=== PATIENT | male | born 1970 | race Caucasian/White ===

== ENCOUNTER 2016-11-13 12:44 | Emergency (ER) | payer OTHER ==
[2016-11-13 13:48] LABS: LARGE UNSTAINED CELL # 0.2 K/mm3 (0.0-0.4); MONO # 0.5 K/mm3 (0.0-0.8)
[2016-11-13 13:54] LABS: MEAN CORPUSCULAR VOLUME 89.7 fl (80.0-96.0)
[2016-11-13 13:55] LABS: BASO % 0.7 % (0.0-1.0); EOS % 1.7 % (0.0-3.0); LARGE UNSTAINED CELL % 2.4 % (0.0-4.0); MEAN CORPUSCULAR HEMOGLOBIN 32.1 pg (27.0-33.0); MEAN CORPUSCULAR HGB CONC 35.8 g/dl (32.0-36.5); MONO % 6.5 % (0.0-5.0); NEUTROPHILS # 4.1 K/mm3 (1.8-7.7); NEUTROPHILS % 58.8 % (36.0-66.0); PLATELET COUNT, AUTOMATED 222 k/mm3 (150-450); RED CELL DISTRIBUTION WIDTH 12.4 % (11.5-14.5)
[2016-11-13 13:56] LABS: BASO # 0.1 K/mm3 (0.0-0.2); EOS # 0.1 K/mm3 (0.0-0.50); LYMPH # 2.1 K/mm3 (1.5-4.5)
[2016-11-13 14:09] LABS: ALBUMIN/GLOBULIN RATIO 1.14 (1.00-1.93); ALKALINE PHOSPHATASE 64 U/L (45-117); ALT/SGPT 56 U/L (12-78); AMYLASE 72 U/L (25-115); ANION GAP 7 MEQ/L (8-16); AST/SGOT 33 U/L (15-37); BILIRUBIN,DIRECT 0.2 MG/DL (0.0-0.2); BILIRUBIN,TOTAL 0.6 MG/DL (0.2-1.0); BLOOD UREA NITROGEN 10 MG/DL (7-18); CALCIUM LEVEL 8.6 MG/DL (8.5-10.1); CARBON DIOXIDE LEVEL 29 MEQ/L (21-32); CHLORIDE LEVEL 102 MEQ/L (98-107); CREATININE FOR GFR 1.07 MG/DL (0.70-1.30); GLOMERULAR FILTRATION RATE > 60.0 (>60); GLUCOSE, FASTING 227 MG/DL (70-105); POTASSIUM SERUM 4.3 MEQ/L (3.5-5.1); SODIUM LEVEL 138 MEQ/L (136-145); TOTAL PROTEIN 7.5 GM/DL (6.4-8.2)
[2016-11-13] MEDS ORDERED: metFORMIN (GLUCOPHAGE) 500 MG TAB As Ordered ONE (16:44)
--- NOTE | 2016-11-13 17:41 | REP ---
RIGHT UPPER QUADRANT ULTRASOUND: 11/13/2016. Clinical history: Biliary colic. Comparison: CT abdomen/pelvis today without contrast. Findings: Liver is homogeneous and perhaps slightly hyperechoic which may reflect some fatty infiltration. There is no hepatic mass, intrahepatic biliary dilatation nor adjacent ascites. Gallbladder has a wall thickness of 1.7 mm which is normal. There is no stone, sludge or pericholecystic fluid. There was no sonographic Barahona's sign evident. Common duct is 4.5 mm without a filling defect. Pancreas is limited in evaluation due to bowel gas shadowing. No gross abnormality. The right kidney is 10.6 x 4.1 x 5.7 cm. Anteriorly in the interpolar region is a 3.6 x 3 x 2.8 cm cyst. Impression: 1. Gallbladder without stones, sludge, pericholecystic fluid, wall thickening or tenderness. No sonographic Barahona sign. 2. The liver is without acute finding. 3. No ascites. The common duct, pancreas and kidneys intact except for a cyst interpolar region right kidney. Signed by Raul Kirkpatrick MD 11/14/2016 08:31 A
--- NOTE | 2016-11-13 17:49 | REP ---
CT study of the abdomen and pelvis without and with IV contrast: History: Abdominal pain. No comparison studies. CT findings: Procurement Clerk radiograph shows an unremarkable bowel gas pattern. The lung bases are clear. The liver and the spleen are normal in size and homogeneous in texture. There is evidence of mild diffuse fatty infiltration of the liver. No adrenal lesion is seen on either side. There is a cyst in the upper pole of the left kidney measuring 2.2 cm in greatest diameter. There is a 3.2 cm cyst in the right kidney lower pole. No pancreatic abnormality is observed. The gallbladder is unremarkable. No hydronephrosis or intrarenal calculus is seen. A normal appendix is seen in the right lower quadrant. Small and large intestinal bowel loops are unremarkable. Seminal vesicles and urinary bladder are intact. There are a few dystrophic calcifications in the prostate. Small and large bowel loops are unremarkable. No abdominal wall defect is seen. No bony destructive lesion is appreciated. Impression: 1. Bilateral renal cysts; one on each side, right larger than left. 2. Mild fatty infiltration of the liver. 3. Dystrophic calcifications in the prostate. 4. Otherwise unremarkable. Signed by Bon Morales MD 11/13/2016 07:47 P
--- NOTE | 2016-11-13 18:02 | EDDOCDS ---
Physician Documentation [facility] Name: Armando Stokes Age: 46 yrs Sex: Male : 1970 Arrival Date: 11/13/2016 Time: 12:44 Bed I5 / M5 Private MD: [facility], [facility] Disposition: 11/13/16 17:49 Discharged to Home/Self Care. Impression: Upper abdominal pain, unspecified, Fatty (change of) liver, not elsewhere classified, Congenital multiple renal cysts - Bilteral, Right larger than left, Disorder of prostate, unspecified - Prostate Calcifications on CT Abd/Pelvis. - Condition is Stable. - Discharge Instructions: Abdominal Pain, Adult. - Prescriptions for ZOFRAN ODT 4 mg - dissolve 1 tablet by ORAL route 4 times per day As needed do not chew, do not swallow whole; 10 tablet. - Medication Reconciliation, Local Pharmacy Hours form. - Follow up: [facility]; When: 1 - 2 days; Reason: Recheck today's complaints, Continuance of care. Follow up: Emergency Department; Reason: Worsening of conditions. Follow up: [facility]; When: Call to arrange an appointment; Reason: Further diagnostic work-up, Recheck today's complaints, Continuance of care. - Problem is new. - Symptoms have improved. - Notes: Pt understands to f/u with his surgeon at [facility]. Historical: - Allergies: no known allergies; - Home Meds: 1. metformin 1,000 mg Oral tab 1 tab 2 times per day 2. metoprolol tartrate 50 mg Oral tab 1 tab 2 times per day - PMHx: Diabetes - NIDDM: controlled; Hypertension; GERD; - PSHx: Mariangel Fundoplication; Carpal Tunnel Repair- Right; - Social history: Smoking status: Patient states was never smoker of tobacco. No barriers to communication noted, The patient speaks fluent Thai. - Family history: Not pertinent. - : The pt / caregiver states he / she is not on anticoagulants. Home medication list is obtained from the patient. - Exposure Risk Screening:: None identified. Vital Signs: 11/13 12:46 BP 156 / 80; Pulse 60; Resp 18 S; Temp 97.3(O); Pulse Ox 100% on R/A; Weight 81.65 kg / dd6 180.01 lbs (R); Height 5 ft. 7 in. (170.18 cm) (R); 15:30 BP 131 / 73; Pulse 58; Resp 18; Temp 98.0(TE); Pulse Ox 99% on R/A; Pain 5/10; ar3 17:56 BP 135 / 83; Pulse 58; Resp 16; Temp 97.6(O); Pulse Ox 98% on R/A; Pain 0/10; sew 12:46 Body Mass Index 28.19 (81.65 kg, 170.18 cm) dd6 MDM: 13:18 Undress patient appropriately for examination ordered. jc4 13:20 Amylase Ordered. EDMS 13:20 Basic Metabolic Profile Ordered. EDMS 13:20 CBC with Diff Ordered. EDMS 13:20 Lipase Ordered. EDMS 13:20 Liver Profile Ordered. EDMS 13:20 NOTHING BY MOUTH+DIET ordered. EDMS 15:53 [facility] [place] was scanned into [employer] and attached to record. lg 16:20 Basic Metabolic Profile Reviewed. ef1 16:20 CBC with Diff Reviewed. ef1 16:20 Amylase Reviewed. ef1 16:20 Lipase Reviewed. ef1 16:20 Liver Profile Reviewed. ef1 16:22 CT ABD & PELVIS: No Contrast Ordered. EDMS 16:24 Financial registration complete. gjb 16:27 Gallbladder US Ordered. EDMS 16:34 metFORMIN 1000 mg PO once ordered. ef1 Administered Medications: 16:33 CANCELLED (Other Intervention Used): Insulin Regular Human (0.1 units/kg) 4 units IVP ef1 once 17:02 Drug: metFORMIN 1000 mg [metformin 500 mg tablet (2 tabs)] Route: PO; yesenia Signatures: Dispatcher [employer] EDMS Chris Rios,RN RN Brayden Taylor, Reg Reg lg Paola Gusman, PA-C PA-C ef1 Chio De La Cruz, RN RN jc4 Taylor Rodriguez RN RN ms18 Katt Page The chart was reviewed and I authenticate all verbal orders and agree with the evaluation and treatment provided.Corrections: (The following items were deleted from the chart) 16:33 16:31 Insulin Regular Human (0.1 units/kg) 4 units IVP once ordered. ef1 ef1 Attachments: 15:53 [facility] [place] lg MTDD
--- NOTE | 2016-11-13 18:02 | EDDOCDS ---
Nurse's Notes [facility] Name: Armando Stokes Age: 46 yrs Sex: Male : 1970 Arrival Date: 11/13/2016 Time: 12:44 Bed I5 / M5 Private MD: [facility] Diagnosis: Upper abdominal pain, unspecified;Fatty (change of) liver, not elsewhere classified;Congenital multiple renal cysts-Bilteral, Right larger than left;Disorder of prostate, unspecified-Prostate Calcifications on CT Abd/Pelvis Presentation: 11/13 12:57 Presenting complaint: Patient states: that he had a osmar surgery approx 1 year ago ms18 and is now c/o abd pain. Pt called [facility]geron and was told to come here and get checked out and get a CT. Adult Sepsis Screening: The patient does not have new or worsening altered mentation. Patient's respiratory rate is less than 22. Systolic blood pressure is greater than 100. Patient has a qSOFA score of 0- Negative Sepsis Screen. Suicide/Homicide risk assessment- the patient denies having any suicidal and/or homicidal ideations and does not present with any other emotional, behavioral or mental health complaints. Status: Patient is not a social services director or dependent. Transition of care: patient was not received from another setting of care. 12:57 Acuity: NATALI Level 3 ms18 12:57 Method Of Arrival: Walkin/Carried/Asstd ms18 Triage Assessment: 13:02 General: Appears in no apparent distress, comfortable, Behavior is appropriate for age, ms18 cooperative. Pain: Location: right upper quadrant Pain currently is 4 out of 10 on a pain scale. HIV screening NA for this visit Offered previously. Neurological: Level of Consciousness is awake, alert, obeys commands, Oriented to person, place, time. Respiratory: Airway is patent Respiratory effort is even, unlabored. GI: Abdomen is non- distended Denies constipation, diarrhea, nausea, vomiting. Derm: Skin is pink, warm & dry. Historical: - Allergies: no known allergies; - Home Meds: 1. metformin 1,000 mg Oral tab 1 tab 2 times per day 2. metoprolol tartrate 50 mg Oral tab 1 tab 2 times per day - PMHx: Diabetes - NIDDM: controlled; Hypertension; GERD; - PSHx: Osmar Fundoplication; Carpal Tunnel Repair- Right; - Social history: Smoking status: Patient states was never smoker of tobacco. No barriers to communication noted, The patient speaks fluent Monegasque. - Family history: Not pertinent. - : The pt / caregiver states he / she is not on anticoagulants. Home medication list is obtained from the patient. - Exposure Risk Screening:: None identified. Screenin:56 Screening information is obtained from the patient. Fall risk: No risks identified. jmk Assistance ADL's: requires no assistance with activities of daily living. Abuse/DV Screen: The patient / caregiver reports he/she is: not in a situation that causes fear, pain or injury. Nutritional screening: No deficits noted. Advance Directives: Currently, there is no health care proxy. There is no active DNR order. There is no living will. There is no Power of Wedding Florist. home support is adequate. Assessment: 16:54 General: Appears in no apparent distress, skin warm and dry color satisfactory. Moist jmk pink oral mucosa. abd soft and non distended with bowel sounds present x 4.. Respiratory: No deficits noted. Airway is patent Respiratory effort is even, unlabored, Respiratory pattern is regular, Breath sounds are clear bilaterally. GI: Abdomen is flat, non- distended Bowel sounds present X 4 quads. Abd is soft and non tender X 4 quads. Vital Signs: 12:46 BP 156 / 80; Pulse 60; Resp 18 S; Temp 97.3(O); Pulse Ox 100% on R/A; Weight 81.65 kg dd6 (R); Height 5 ft. 7 in. (170.18 cm) (R); 15:30 BP 131 / 73; Pulse 58; Resp 18; Temp 98.0(TE); Pulse Ox 99% on R/A; Pain 5/10; ar3 17:56 BP 135 / 83; Pulse 58; Resp 16; Temp 97.6(O); Pulse Ox 98% on R/A; Pain 0/10; sew 12:46 Body Mass Index 28.19 (81.65 kg, 170.18 cm) dd6 Vitals: 12:46 Log In Time: November 13, 2016 at 12:44. dd6 ED Course: 12:46 Patient visited by Tremaine Abernathy PCA. dd6 12:46 [facility] is Private Physician. dd6 12:46 Patient moved to Waiting dd6 12:48 Patient moved to Pre RCE dd6 13:00 Triage Initiated ms18 13:32 Patient moved to PR1 / 25 ms18 13:39 Amylase Sent. bnb 13:39 Basic Metabolic Profile Sent. bnb 13:39 CBC with Diff Sent. bnb 13:40 Patient moved to Pre RCE bnb 13:40 Lipase Sent. bnb 13:40 Liver Profile Sent. bnb 15:31 Patient visited by Tennille Johnson PCA. ar3 15:46 Patient moved to Triage 2 ead 15:53 Patient name changed from Armando\S\T\S\Luna\S\ to Armando\S\Lupillo\S\Luna. EDMS 15:53 [place] [place] was scanned into [employer] and attached to record. lg 16:20 Paola Gusman PA-C is PHCP. ef1 16:20 Leilani Lagunas MD is Attending Physician. ef1 16:20 Patient visited by Paola Gusman PA-C. ef1 16:27 Patient moved to I5 / M5 ar3 16:43 Patient moved to Ultrasound am17 16:56 The patient / caregiver is instructed regarding the plan of care and ED course. jmk 16:57 Patient moved to I5 / M5 jmk 17:00 Patient visited by Paola Gusman PA-C. ef1 17:43 Patient visited by Paola Gusman PA-C. ef1 17:49 [facility] is Referral Physician. ef1 17:54 [facility] is Referral Physician. ef1 17:56 Patient visited by Kiley Momin. sew Administered Medications: 16:33 CANCELLED (Other Intervention Used): Insulin Regular Human (0.1 units/kg) 4 units IVP ef1 once 17:02 Drug: metFORMIN 1000 mg [metformin 500 mg tablet (2 tabs)] Route: PO; jmrobb Order Results: Lab Order: Amylase; SPEC'M 11/13/16 13:39 Test: AMYLASE; Value: 72; Range: 25-115; Units: U/L; Status: F Lab Order: Basic Metabolic Profile; SPEC'M 11/13/16 13:39 Test: GLUCOSE, FASTING; Value: 227; Range: 70-105; Abnormal: Above high normal; Units: MG/DL; Status: F Test: BLOOD UREA NITROGEN; Value: 10; Range: 7-18; Units: MG/DL; Status: F Test: CREATININE FOR GFR; Value: 1.07; Range: 0.70-1.30; Units: MG/DL; Status: F Test: GLOMERULAR FILTRATION RATE; Value: > 60.0; Range: >60; Status: F Test: SODIUM LEVEL; Value: 138; Range: 136-145; Units: MEQ/L; Status: F Test: POTASSIUM SERUM; Value: 4.3; Range: 3.5-5.1; Units: MEQ/L; Status: F Test: CHLORIDE LEVEL; Value: 102; Range: 98-107; Units: MEQ/L; Status: F Test: CARBON DIOXIDE LEVEL; Value: 29; Range: 21-32; Units: MEQ/L; Status: F Test: ANION GAP; Value: 7; Range: 8-16; Abnormal: Below low normal; Units: MEQ/L; Status: F Test: CALCIUM LEVEL; Value: 8.6; Range: 8.5-10.1; Units: MG/DL; Status: F Test Note: ; Units are mL/min/1.73 m2 Chronic Kidney Disease Staging per NKF: Stage I & II GFR >=60 Normal to Mildly Decreased Stage III GFR 30-59 Moderately Decreased Stage IV GFR 15-29 Severely Decreased Stage V GFR <15 Very Little GFR Left ESRD GFR <15 on DELIVERY REP Lab Order: CBC with Diff; SPEC'M 11/13/16 13:39 Test: WHITE BLOOD COUNT; Value: 7.0; Range: 4.0-10.0; Units: K/mm3; Status: F Test: RED BLOOD COUNT; Value: 4.86; Range: 4.30-6.10; Units: M/mm3; Status: F Test: HEMOGLOBIN; Value: 15.6; Range: 14.0-18.0; Units: g/dl; Status: F Test: HEMATOCRIT; Value: 43.6; Range: 42.0-52.0; Units: %; Status: F Test: MEAN CORPUSCULAR VOLUME; Value: 89.7; Range: 80.0-96.0; Units: fl; Status: F Test: MEAN CORPUSCULAR HEMOGLOBIN; Value: 32.1; Range: 27.0-33.0; Units: pg; Status: F Test: MEAN CORPUSCULAR HGB CONC; Value: 35.8; Range: 32.0-36.5; Units: g/dl; Status: F Test: RED CELL DISTRIBUTION WIDTH; Value: 12.4; Range: 11.5-14.5; Units: %; Status: F Test: PLATELET COUNT, AUTOMATED; Value: 222; Range: 150-450; Units: k/mm3; Status: F Test: NEUTROPHILS %; Value: 58.8; Range: 36.0-66.0; Units: %; Status: F Test: LYMPH %; Value: 30.0; Range: 24.0-44.0; Units: %; Status: F Test: MONO %; Value: 6.5; Range: 0.0-5.0; Abnormal: Above high normal; Units: %; Status: F Test: EOS %; Value: 1.7; Range: 0.0-3.0; Units: %; Status: F Test: BASO %; Value: 0.7; Range: 0.0-1.0; Units: %; Status: F Test: LARGE UNSTAINED CELL %; Value: 2.4; Range: 0.0-4.0; Units: %; Status: F Test: NEUTROPHILS #; Value: 4.1; Range: 1.8-7.7; Units: K/mm3; Status: F Test: LYMPH #; Value: 2.1; Range: 1.5-4.5; Units: K/mm3; Status: F Test: MONO #; Value: 0.5; Range: 0.0-0.8; Units: K/mm3; Status: F Test: EOS #; Value: 0.1; Range: 0.0-0.50; Units: K/mm3; Status: F Test: BASO #; Value: 0.1; Range: 0.0-0.2; Units: K/mm3; Status: F Test: LARGE UNSTAINED CELL #; Value: 0.2; Range: 0.0-0.4; Units: K/mm3; Status: F Lab Order: Lipase; SPEC'M 11/13/16 13:39 Test: LIPASE; Value: 265; Range: 73-393; Units: U/L; Status: F Lab Order: Liver Profile; SPEC'M 11/13/16 13:39 Test: AST/SGOT; Value: 33; Range: 15-37; Units: U/L; Status: F Test: ALT/SGPT; Value: 56; Range: 12-78; Units: U/L; Status: F Test: ALKALINE PHOSPHATASE; Value: 64; Range: 45-117; Units: U/L; Status: F Test: BILIRUBIN,TOTAL; Value: 0.6; Range: 0.2-1.0; Units: MG/DL; Status: F Test: BILIRUBIN,DIRECT; Value: 0.2; Range: 0.0-0.2; Units: MG/DL; Status: F Test: TOTAL PROTEIN; Value: 7.5; Range: 6.4-8.2; Units: GM/DL; Status: F Test: ALBUMIN; Value: 4.0; Range: 3.2-5.2; Units: GM/DL; Status: F Test: ALBUMIN/GLOBULIN RATIO; Value: 1.14; Range: 1.00-1.93; Status: F Outcome: 17:49 Discharge ordered by Provider. ef1 18:00 Discharge Assessment: Patient awake, alert and oriented x 3. No cognitive and/or jmk functional deficits noted. Patient verbalized understanding of disposition instructions. patient administered narcotics - no. The following High Risk Discharge criteria are identified: None. Discharged to home ambulatory. Condition: good. Discharge instructions given to patient, Instructed on discharge instructions, follow up and referral plans. Demonstrated understanding of instructions, medications, Pt was receptive of discharge instructions/ teaching. Prescriptions given X 1. CT Study completed. Property :Personal belongings accompany Pt. 18:01 Patient left the ED. yesenia Signatures: Dispatcher [employer] EDMS Chris Rios,RN RN Brayden Taylor, Reg Reg lg Tremaine Abernathy, ANESTHESIOLOGIST ASSISTANT ANESTHESIOLOGIST ASSISTANT dd6 Paola Gusman, PA-C PA-C ef1 Tennille Johnson, ANESTHESIOLOGIST ASSISTANT ANESTHESIOLOGIST ASSISTANT ar3 Kiley Momin Emily,GUSTAVO CHEN eaAmparo Stanley am17 Taylor Rodriguez RN RN ms18 Elina García, ANESTHESIOLOGIST ASSISTANT ANESTHESIOLOGIST ASSISTANT bnb MTDD
--- NOTE | 2016-11-15 19:02 | EDDOCDS ---
Physician Documentation [facility] Name: Armando Stokes Age: 46 yrs Sex: Male : 1970 Arrival Date: 11/13/2016 Time: 12:44 Bed I5 / M5 Private MD: [facility] Disposition: 11/13/16 17:49 Discharged to Home/Self Care. Impression: Upper abdominal pain, unspecified, Fatty (change of) liver, not elsewhere classified, Congenital multiple renal cysts - Bilteral, Right larger than left, Disorder of prostate, unspecified - Prostate Calcifications on CT Abd/Pelvis. - Condition is Stable. - Discharge Instructions: Abdominal Pain, Adult. - Prescriptions for ZOFRAN ODT 4 mg - dissolve 1 tablet by ORAL route 4 times per day As needed do not chew, do not swallow whole; 10 tablet. - Medication Reconciliation, Local Pharmacy Hours form. - Follow up: [facility]; When: 1 - 2 days; Reason: Recheck today's complaints, Continuance of care. Follow up: Emergency Department; Reason: Worsening of conditions. Follow up: [facility]; When: Call to arrange an appointment; Reason: Further diagnostic work-up, Recheck today's complaints, Continuance of care. - Problem is new. - Symptoms have improved. - Notes: Pt understands to f/u with his surgeon at [facility]. Historical: - Allergies: no known allergies; - Home Meds: 1. metformin 1,000 mg Oral tab 1 tab 2 times per day 2. metoprolol tartrate 50 mg Oral tab 1 tab 2 times per day - PMHx: Diabetes - NIDDM: controlled; Hypertension; GERD; - PSHx: Mariangel Fundoplication; Carpal Tunnel Repair- Right; - Social history: Smoking status: Patient states was never smoker of tobacco. No barriers to communication noted, The patient speaks fluent Upper Sorbian. - Family history: Not pertinent. - : The pt / caregiver states he / she is not on anticoagulants. Home medication list is obtained from the patient. - Exposure Risk Screening:: None identified. Vital Signs: 11/13 12:46 BP 156 / 80; Pulse 60; Resp 18 S; Temp 97.3(O); Pulse Ox 100% on R/A; Weight 81.65 kg / dd6 180.01 lbs (R); Height 5 ft. 7 in. (170.18 cm) (R); 15:30 BP 131 / 73; Pulse 58; Resp 18; Temp 98.0(TE); Pulse Ox 99% on R/A; Pain 5/10; ar3 17:56 BP 135 / 83; Pulse 58; Resp 16; Temp 97.6(O); Pulse Ox 98% on R/A; Pain 0/10; sew 12:46 Body Mass Index 28.19 (81.65 kg, 170.18 cm) dd6 MDM: 13:18 Undress patient appropriately for examination ordered. jc4 13:20 Amylase Ordered. EDMS 13:20 Basic Metabolic Profile Ordered. EDMS 13:20 CBC with Diff Ordered. EDMS 13:20 Lipase Ordered. EDMS 13:20 Liver Profile Ordered. EDMS 13:20 NOTHING BY MOUTH+DIET ordered. EDMS 15:53 [facility] [place] was scanned into [employer] and attached to record. lg 16:20 Basic Metabolic Profile Reviewed. ef1 16:20 CBC with Diff Reviewed. ef1 16:20 Amylase Reviewed. ef1 16:20 Lipase Reviewed. ef1 16:20 Liver Profile Reviewed. ef1 16:22 CT ABD & PELVIS: No Contrast Ordered. EDMS 16:24 Financial registration complete. gjb 16:27 Gallbladder US Ordered. EDMS 16:34 metFORMIN 1000 mg PO once ordered. ef1 11/14 09:15 T-Sheet-- Draft Copy was scanned into [employer] and attached to record. gb 09:16 Radiology Report was scanned into [employer] and attached to record. gb Administered Medications: 11/13 16:33 CANCELLED (Other Intervention Used): Insulin Regular Human (0.1 units/kg) 4 units IVP ef1 once 17:02 Drug: metFORMIN 1000 mg [metformin 500 mg tablet (2 tabs)] Route: PO; yesenia Signatures: Dispatcher [employer] EDMS Chris Rios,RN RN benitezk Silvana Luque, Reg Reg gb Brayden Del Toro, Reg Reg lg Paola Gusman, PA-C PA-C ef1 Chio De La Cruz RN RN jc4 Taylor RodriguezRN RN ms18 Katt Page The chart was reviewed and I authenticate all verbal orders and agree with the evaluation and treatment provided.Corrections: (The following items were deleted from the chart) 16:33 16:31 Insulin Regular Human (0.1 units/kg) 4 units IVP once ordered. ef1 ef1 Attachments: 15:53 [facility] Payment Agreement lg 11/14 09:15 T-Sheet-- Draft Copy gb Chart Complete MTDD
--- NOTE | 2016-11-15 19:02 | EDDOCDS ---
Physician Documentation [facility] Name: Armadno Stokes Age: 46 yrs Sex: Male : 1970 Arrival Date: 11/13/2016 Time: 12:44 Bed I5 / M5 Private MD: [facility], [facility] Disposition: 11/13/16 17:49 Discharged to Home/Self Care. Impression: Upper abdominal pain, unspecified, Fatty (change of) liver, not elsewhere classified, Congenital multiple renal cysts - Bilteral, Right larger than left, Disorder of prostate, unspecified - Prostate Calcifications on CT Abd/Pelvis. - Condition is Stable. - Discharge Instructions: Abdominal Pain, Adult. - Prescriptions for ZOFRAN ODT 4 mg - dissolve 1 tablet by ORAL route 4 times per day As needed do not chew, do not swallow whole; 10 tablet. - Medication Reconciliation, Local Pharmacy Hours form. - Follow up: [facility] [place]; When: 1 - 2 days; Reason: Recheck today's complaints, Continuance of care. Follow up: Emergency Department; Reason: Worsening of conditions. Follow up: [facility]; When: Call to arrange an appointment; Reason: Further diagnostic work-up, Recheck today's complaints, Continuance of care. - Problem is new. - Symptoms have improved. - Notes: Pt understands to f/u with his surgeon at [facility]. Historical: - Allergies: no known allergies; - Home Meds: 1. metformin 1,000 mg Oral tab 1 tab 2 times per day 2. metoprolol tartrate 50 mg Oral tab 1 tab 2 times per day - PMHx: Diabetes - NIDDM: controlled; Hypertension; GERD; - PSHx: Mariangel Fundoplication; Carpal Tunnel Repair- Right; - Social history: Smoking status: Patient states was never smoker of tobacco. No barriers to communication noted, The patient speaks fluent Macedonian. - Family history: Not pertinent. - : The pt / caregiver states he / she is not on anticoagulants. Home medication list is obtained from the patient. - Exposure Risk Screening:: None identified. Vital Signs: 11/13 12:46 BP 156 / 80; Pulse 60; Resp 18 S; Temp 97.3(O); Pulse Ox 100% on R/A; Weight 81.65 kg / dd6 180.01 lbs (R); Height 5 ft. 7 in. (170.18 cm) (R); 15:30 BP 131 / 73; Pulse 58; Resp 18; Temp 98.0(TE); Pulse Ox 99% on R/A; Pain 5/10; ar3 17:56 BP 135 / 83; Pulse 58; Resp 16; Temp 97.6(O); Pulse Ox 98% on R/A; Pain 0/10; sew 12:46 Body Mass Index 28.19 (81.65 kg, 170.18 cm) dd6 MDM: 13:18 Undress patient appropriately for examination ordered. jc4 13:20 Amylase Ordered. EDMS 13:20 Basic Metabolic Profile Ordered. EDMS 13:20 CBC with Diff Ordered. EDMS 13:20 Lipase Ordered. EDMS 13:20 Liver Profile Ordered. EDMS 13:20 NOTHING BY MOUTH+DIET ordered. EDMS 15:53 [facility] [place] Payment Agreement was scanned into [employer] and attached to record. lg 16:20 Basic Metabolic Profile Reviewed. ef1 16:20 CBC with Diff Reviewed. ef1 16:20 Amylase Reviewed. ef1 16:20 Lipase Reviewed. ef1 16:20 Liver Profile Reviewed. ef1 16:22 CT ABD & PELVIS: No Contrast Ordered. EDMS 16:24 Financial registration complete. gjb 16:27 Gallbladder US Ordered. EDMS 16:34 metFORMIN 1000 mg PO once ordered. ef1 11/14 09:15 T-Sheet-- Draft Copy was scanned into [employer] and attached to record. gb 09:16 Radiology Report was scanned into [employer] and attached to record. gb Administered Medications: 11/13 16:33 CANCELLED (Other Intervention Used): Insulin Regular Human (0.1 units/kg) 4 units IVP ef1 once 17:02 Drug: metFORMIN 1000 mg [metformin 500 mg tablet (2 tabs)] Route: PO; yesenia Signatures: Dispatcher [employer] EDMS Chris Rios,RN RN benitezk Silvana Luque, Reg Reg gb Brayden Del Toro, Reg Reg lg Paola Gusman, PA-C PA-C ef1 Chio De La Cruz RN RN jc4 Taylor RodriguezRN RN ms18 Katt Page The chart was reviewed and I authenticate all verbal orders and agree with the evaluation and treatment provided.Corrections: (The following items were deleted from the chart) 16:33 16:31 Insulin Regular Human (0.1 units/kg) 4 units IVP once ordered. ef1 ef1 Attachments: 15:53 [facility] Payment Agreement lg 11/14 09:15 T-Sheet-- Draft Copy gb Chart Complete MTDD
--- NOTE | 2016-11-15 19:02 | EDDOCDS ---
Nurse's Notes [facility] Name: Armando Stokes Age: 46 yrs Sex: Male : 1970 Arrival Date: 11/13/2016 Time: 12:44 Bed I5 / M5 Private MD: [facility] Diagnosis: Upper abdominal pain, unspecified;Fatty (change of) liver, not elsewhere classified;Congenital multiple renal cysts-Bilteral, Right larger than left;Disorder of prostate, unspecified-Prostate Calcifications on CT Abd/Pelvis Presentation: 11/13 12:57 Presenting complaint: Patient states: that he had a osmar surgery approx 1 year ago ms18 and is now c/o abd pain. Pt called [facility] and was told to come here and get checked out and get a CT. Adult Sepsis Screening: The patient does not have new or worsening altered mentation. Patient's respiratory rate is less than 22. Systolic blood pressure is greater than 100. Patient has a qSOFA score of 0- Negative Sepsis Screen. Suicide/Homicide risk assessment- the patient denies having any suicidal and/or homicidal ideations and does not present with any other emotional, behavioral or mental health complaints. Status: Patient is not a food service employee or dependent. Transition of care: patient was not received from another setting of care. 12:57 Acuity: NATALI Level 3 ms18 12:57 Method Of Arrival: Walkin/Carried/Asstd ms18 Triage Assessment: 13:02 General: Appears in no apparent distress, comfortable, Behavior is appropriate for age, ms18 cooperative. Pain: Location: right upper quadrant Pain currently is 4 out of 10 on a pain scale. HIV screening NA for this visit Offered previously. Neurological: Level of Consciousness is awake, alert, obeys commands, Oriented to person, place, time. Respiratory: Airway is patent Respiratory effort is even, unlabored. GI: Abdomen is non- distended Denies constipation, diarrhea, nausea, vomiting. Derm: Skin is pink, warm & dry. Historical: - Allergies: no known allergies; - Home Meds: 1. metformin 1,000 mg Oral tab 1 tab 2 times per day 2. metoprolol tartrate 50 mg Oral tab 1 tab 2 times per day - PMHx: Diabetes - NIDDM: controlled; Hypertension; GERD; - PSHx: Osmar Fundoplication; Carpal Tunnel Repair- Right; - Social history: Smoking status: Patient states was never smoker of tobacco. No barriers to communication noted, The patient speaks fluent Norwegian. - Family history: Not pertinent. - : The pt / caregiver states he / she is not on anticoagulants. Home medication list is obtained from the patient. - Exposure Risk Screening:: None identified. Screenin:56 Screening information is obtained from the patient. Fall risk: No risks identified. jmk Assistance ADL's: requires no assistance with activities of daily living. Abuse/DV Screen: The patient / caregiver reports he/she is: not in a situation that causes fear, pain or injury. Nutritional screening: No deficits noted. Advance Directives: Currently, there is no health care proxy. There is no active DNR order. There is no living will. There is no Power of Firearms Inspector. home support is adequate. Assessment: 16:54 General: Appears in no apparent distress, skin warm and dry color satisfactory. Moist jmk pink oral mucosa. abd soft and non distended with bowel sounds present x 4.. Respiratory: No deficits noted. Airway is patent Respiratory effort is even, unlabored, Respiratory pattern is regular, Breath sounds are clear bilaterally. GI: Abdomen is flat, non- distended Bowel sounds present X 4 quads. Abd is soft and non tender X 4 quads. Vital Signs: 12:46 BP 156 / 80; Pulse 60; Resp 18 S; Temp 97.3(O); Pulse Ox 100% on R/A; Weight 81.65 kg dd6 (R); Height 5 ft. 7 in. (170.18 cm) (R); 15:30 BP 131 / 73; Pulse 58; Resp 18; Temp 98.0(TE); Pulse Ox 99% on R/A; Pain 5/10; ar3 17:56 BP 135 / 83; Pulse 58; Resp 16; Temp 97.6(O); Pulse Ox 98% on R/A; Pain 0/10; sew 12:46 Body Mass Index 28.19 (81.65 kg, 170.18 cm) dd6 Vitals: 12:46 Log In Time: November 13, 2016 at 12:44. dd6 ED Course: 12:46 Patient visited by Tremaine Abernathy PCA. dd6 12:46 [facility] is Private Physician. dd6 12:46 Patient moved to Waiting dd6 12:48 Patient moved to Pre RCE dd6 13:00 Triage Initiated ms18 13:32 Patient moved to PR1 / 25 ms18 13:39 Amylase Sent. bnb 13:39 Basic Metabolic Profile Sent. bnb 13:39 CBC with Diff Sent. bnb 13:40 Patient moved to Pre RCE bnb 13:40 Lipase Sent. bnb 13:40 Liver Profile Sent. bnb 15:31 Patient visited by Tennille Johnson PCA. ar3 15:46 Patient moved to Triage 2 ead 15:53 Patient name changed from Armando\S\T\S\Grady\S\ to Armando\S\Lupillo\S\Grady. EDMS 15:53 [facility] [place] Payment Agreement was scanned into [employer] and attached to record. lg 16:20 Paola uGsman PA-C is PHCP. ef1 16:20 Leilani Lagunas MD is Attending Physician. ef1 16:20 Patient visited by Paola Gusman PA-C. ef1 16:27 Patient moved to I5 / M5 ar3 16:43 Patient moved to Ultrasound am17 16:56 The patient / caregiver is instructed regarding the plan of care and ED course. jmk 16:57 Patient moved to I5 / M5 jmk 17:00 Patient visited by Paola Gusman PA-C. ef1 17:43 Patient visited by Paola Gusman PA-C. ef1 17:49 [facility] is Referral Physician. ef1 17:54 [facility] is Referral Physician. ef1 17:56 Patient visited by Kiley Momin. sew 18:11 Gallbladder US Returned. EDMS 18:11 CT ABD & PELVIS: No Contrast Returned. EDMS 11/14 09:15 T-Sheet-- Draft Copy was scanned into [employer] and attached to record. gb 09:16 Radiology Report was scanned into [employer] and attached to record. gb Administered Medications: 11/13 16:33 CANCELLED (Other Intervention Used): Insulin Regular Human (0.1 units/kg) 4 units IVP ef1 once 17:02 Drug: metFORMIN 1000 mg [metformin 500 mg tablet (2 tabs)] Route: PO; jmk Order Results: Lab Order: Amylase; SPEC'M 11/13/16 13:39 Test: AMYLASE; Value: 72; Range: 25-115; Units: U/L; Status: F Lab Order: Basic Metabolic Profile; SPEC'M 11/13/16 13:39 Test: GLUCOSE, FASTING; Value: 227; Range: 70-105; Abnormal: Above high normal; Units: MG/DL; Status: F Test: BLOOD UREA NITROGEN; Value: 10; Range: 7-18; Units: MG/DL; Status: F Test: CREATININE FOR GFR; Value: 1.07; Range: 0.70-1.30; Units: MG/DL; Status: F Test: GLOMERULAR FILTRATION RATE; Value: > 60.0; Range: >60; Status: F Test: SODIUM LEVEL; Value: 138; Range: 136-145; Units: MEQ/L; Status: F Test: POTASSIUM SERUM; Value: 4.3; Range: 3.5-5.1; Units: MEQ/L; Status: F Test: CHLORIDE LEVEL; Value: 102; Range: 98-107; Units: MEQ/L; Status: F Test: CARBON DIOXIDE LEVEL; Value: 29; Range: 21-32; Units: MEQ/L; Status: F Test: ANION GAP; Value: 7; Range: 8-16; Abnormal: Below low normal; Units: MEQ/L; Status: F Test: CALCIUM LEVEL; Value: 8.6; Range: 8.5-10.1; Units: MG/DL; Status: F Test Note: ; Units are mL/min/1.73 m2 Chronic Kidney Disease Staging per NKF: Stage I & II GFR >=60 Normal to Mildly Decreased Stage III GFR 30-59 Moderately Decreased Stage IV GFR 15-29 Severely Decreased Stage V GFR <15 Very Little GFR Left ESRD GFR <15 on RIVET PASSER Lab Order: CBC with Diff; SPEC'M 11/13/16 13:39 Test: WHITE BLOOD COUNT; Value: 7.0; Range: 4.0-10.0; Units: K/mm3; Status: F Test: RED BLOOD COUNT; Value: 4.86; Range: 4.30-6.10; Units: M/mm3; Status: F Test: HEMOGLOBIN; Value: 15.6; Range: 14.0-18.0; Units: g/dl; Status: F Test: HEMATOCRIT; Value: 43.6; Range: 42.0-52.0; Units: %; Status: F Test: MEAN CORPUSCULAR VOLUME; Value: 89.7; Range: 80.0-96.0; Units: fl; Status: F Test: MEAN CORPUSCULAR HEMOGLOBIN; Value: 32.1; Range: 27.0-33.0; Units: pg; Status: F Test: MEAN CORPUSCULAR HGB CONC; Value: 35.8; Range: 32.0-36.5; Units: g/dl; Status: F Test: RED CELL DISTRIBUTION WIDTH; Value: 12.4; Range: 11.5-14.5; Units: %; Status: F Test: PLATELET COUNT, AUTOMATED; Value: 222; Range: 150-450; Units: k/mm3; Status: F Test: NEUTROPHILS %; Value: 58.8; Range: 36.0-66.0; Units: %; Status: F Test: LYMPH %; Value: 30.0; Range: 24.0-44.0; Units: %; Status: F Test: MONO %; Value: 6.5; Range: 0.0-5.0; Abnormal: Above high normal; Units: %; Status: F Test: EOS %; Value: 1.7; Range: 0.0-3.0; Units: %; Status: F Test: BASO %; Value: 0.7; Range: 0.0-1.0; Units: %; Status: F Test: LARGE UNSTAINED CELL %; Value: 2.4; Range: 0.0-4.0; Units: %; Status: F Test: NEUTROPHILS #; Value: 4.1; Range: 1.8-7.7; Units: K/mm3; Status: F Test: LYMPH #; Value: 2.1; Range: 1.5-4.5; Units: K/mm3; Status: F Test: MONO #; Value: 0.5; Range: 0.0-0.8; Units: K/mm3; Status: F Test: EOS #; Value: 0.1; Range: 0.0-0.50; Units: K/mm3; Status: F Test: BASO #; Value: 0.1; Range: 0.0-0.2; Units: K/mm3; Status: F Test: LARGE UNSTAINED CELL #; Value: 0.2; Range: 0.0-0.4; Units: K/mm3; Status: F Lab Order: Lipase; SPEC'M 11/13/16 13:39 Test: LIPASE; Value: 265; Range: 73-393; Units: U/L; Status: F Lab Order: Liver Profile; SPEC'M 11/13/16 13:39 Test: AST/SGOT; Value: 33; Range: 15-37; Units: U/L; Status: F Test: ALT/SGPT; Value: 56; Range: 12-78; Units: U/L; Status: F Test: ALKALINE PHOSPHATASE; Value: 64; Range: 45-117; Units: U/L; Status: F Test: BILIRUBIN,TOTAL; Value: 0.6; Range: 0.2-1.0; Units: MG/DL; Status: F Test: BILIRUBIN,DIRECT; Value: 0.2; Range: 0.0-0.2; Units: MG/DL; Status: F Test: TOTAL PROTEIN; Value: 7.5; Range: 6.4-8.2; Units: GM/DL; Status: F Test: ALBUMIN; Value: 4.0; Range: 3.2-5.2; Units: GM/DL; Status: F Test: ALBUMIN/GLOBULIN RATIO; Value: 1.14; Range: 1.00-1.93; Status: F Radiology Order: CT ABD & PELVIS: No Contrast Test: CT ABD & PELVIS: No Contrast REASON FOR EXAMINATION: Abdomen Pain; CT study of the abdomen and pelvis without and with IV contrast:; ; History: Abdominal pain.; ; No comparison studies.; ; CT findings: Molded Grid And Parts Inspector radiograph shows an unremarkable bowel gas pattern. The lung; bases are clear. The liver and the spleen are normal in size and homogeneous in; texture. There is evidence of mild diffuse fatty infiltration of the liver. No; adrenal lesion is seen on either side. There is a cyst in the upper pole of the; left kidney measuring 2.2 cm in greatest diameter. There is a 3.2 cm cyst in the; right kidney lower pole. No pancreatic abnormality is observed. The gallbladder; is unremarkable. No hydronephrosis or intrarenal calculus is seen. A normal; appendix is seen in the right lower quadrant. Small and large intestinal bowel; loops are unremarkable. Seminal vesicles and urinary bladder are intact. There; are a few dystrophic calcifications in the prostate. Small and large bowel loops; are unremarkable. No abdominal wall defect is seen. No bony destructive lesion; is appreciated.; ; Impression:; ; 1. Bilateral renal cysts; one on each side, right larger than left.; ; 2. Mild fatty infiltration of the liver.; ; 3. Dystrophic calcifications in the prostate.; ; 4. Otherwise unremarkable.; ; ; Signed by; Bon Morales MD 11/13/2016 07:47 P; Radiology Order: Gallbladder US Test: Gallbladder US REASON FOR EXAMINATION: Biliary Colic; RIGHT UPPER QUADRANT ULTRASOUND: 11/13/2016.; ; Clinical history: Biliary colic.; ; Comparison: CT abdomen/pelvis today without contrast.; ; Findings: Liver is homogeneous and perhaps slightly hyperechoic which may; reflect some fatty infiltration. There is no hepatic mass, intrahepatic biliary; dilatation nor adjacent ascites. Gallbladder has a wall thickness of 1.7 mm; which is normal. There is no stone, sludge or pericholecystic fluid. There was; no sonographic Barahona's sign evident. Common duct is 4.5 mm without a filling; defect. Pancreas is limited in evaluation due to bowel gas shadowing. No gross; abnormality. The right kidney is 10.6 x 4.1 x 5.7 cm. Anteriorly in the; interpolar region is a 3.6 x 3 x 2.8 cm cyst.; ; Impression:; ; 1. Gallbladder without stones, sludge, pericholecystic fluid, wall thickening or; tenderness. No sonographic Barahona sign.; ; 2. The liver is without acute finding.; ; 3. No ascites. The common duct, pancreas and kidneys intact except for a cyst; interpolar region right kidney.; ; ; Signed by; Raul Kirkpatrick MD 11/14/2016 08:31 A; Outcome: 17:49 Discharge ordered by Provider. ef1 18:00 Discharge Assessment: Patient awake, alert and oriented x 3. No cognitive and/or jmk functional deficits noted. Patient verbalized understanding of disposition instructions. patient administered narcotics - no. The following High Risk Discharge criteria are identified: None. Discharged to home ambulatory. Condition: good. Discharge instructions given to patient, Instructed on discharge instructions, follow up and referral plans. Demonstrated understanding of instructions, medications, Pt was receptive of discharge instructions/ teaching. Prescriptions given X 1. CT Study completed. Property :Personal belongings accompany Pt. 18:01 Patient left the ED. yesenia Signatures: Dispatcher [employer] EDMS Chris Rios,RN RN yesenia Luque, Silvana, Reg Reg gb Alverto TeganLandonsarah, Reg Reg lg Tremaine Abernathy, COMMUNICATIONS PROGRAM MANAGER COMMUNICATIONS PROGRAM MANAGER dd6 Paola Gusman, PA-C PA-C ef1 Tennille Johnson, COMMUNICATIONS PROGRAM MANAGER COMMUNICATIONS PROGRAM MANAGER ar3 Kiley Momin Emily,RN RN eaAmparo Stanley am17 Taylor Rodriguez,RN RN ms18 Elina García, COMMUNICATIONS PROGRAM MANAGER COMMUNICATIONS PROGRAM MANAGER bnb Chart Complete MTDD
== END 2016-11-13 18:01 | disposition home or self-care (01) ==
LOC: M ED 12:44
DX: N28.1 Cyst of kidney, acquired (principal); K76.0 Fatty (change of) liver, not elsewhere classified; N42.9 Disorder of prostate, unspecified; E11.9 Type 2 diabetes mellitus without complications; I10 Essential (primary) hypertension; K21.9 Gastro-esophageal reflux disease without esophagitis; Z79.899 Other long term (current) drug therapy

== ENCOUNTER → 2016-11-20 | Outpatient (CLI) | payer OTHER | LOC: M SMT 15:42 | PROVIDERS: ATTEND Nurse Practitioner Women's Health | DX: Z12.5 Encounter for screening for malignant neoplasm of prostate (principal) ==

== ENCOUNTER → 2016-11-28 | Outpatient (CLI) | payer OTHER ==
[~2016-11-28] MED LIST: E-Z-GAS II EFFERVESCENT PACKET (SODIUM BICARB./CITRIC ACID/SIMETHICONE) As Ordered ONE; E-Z-HD 98% w/w 340GM SUSP BTL As Ordered ONE; E-Z-PAQUE 96% w/w SUSP 176GM BTL As Ordered ONE
--- NOTE | 2016-11-28 19:05 | REP ---
ESOPHAGRAM: The procedure was performed under the direct supervision of Dr. Morales. The images were reviewed with Dr. Morales. A single view PA chest x-ray is submitted as a table saw operator film. The superior mediastinal structures are midline. The heart size is within normal limits. The lungs are clear. Liquid barium was given in the erect and prone oblique positions. The oral and pharyngeal stages of deglutition are unremarkable. Esophageal transport is prompt and efficient and there is no esophagitis, stricture, mucosal ring or hiatal hernia. The patient is status post Mariangel fundoplasty. There is mild gastroesophageal reflux demonstrated to below the level of the davonte. There is free flow of contrast through the surgical site without evidence of stricture or obstruction. IMPRESSION: Postsurgical changes consistent with the patient's history of Mariangel fundoplasty. There is mild reflux demonstrated to below the level of the davonte, otherwise single contrast esophagram within normal limits. 1 minute and 39 seconds of fluoroscopy time was utilized for this procedure. Reviewed by JEEVAN Pritchard 11/29/2016 02:02 PEdited and Signed by Bon Morales MD 11/29/2016 02:25 P
== END ==
LOC: M RAD 07:54
PROVIDERS: ATTEND Surgery
DX: K21.9 Gastro-esophageal reflux disease without esophagitis (principal); Z98.890 Other specified postprocedural states; T17.308A Unspecified foreign body in larynx causing other injury, initial encounter

== ENCOUNTER → 2016-12-08 | Outpatient (CLI) | payer OTHER ==
[~2016-12-08] MED LIST changes: -E-Z-GAS II EFFERVESCENT PACKET (SODIUM BICARB./CITRIC ACID/SIMETHICONE) As Ordered ONE; -E-Z-HD 98% w/w 340GM SUSP BTL As Ordered ONE; -E-Z-PAQUE 96% w/w SUSP 176GM BTL As Ordered ONE; +ISOVUE-370 76% 100ML VIAL (Q9967) As Ordered ONE
--- NOTE | 2016-12-08 21:11 | REP ---
CT ABDOMEN AND PELVIS WITH CONTRAST: 12/08/2016. Clinical history: Renal cyst for dedicated dynamic CT protocol. Comparison: Noncontrast CT and gallbladder ultrasound 11/13/2016. Technique: Noncontrast images through the kidneys with a bolus of 100 mL of Isovue 370 with arterial, venous and 5-minute delayed images through the kidneys and venous phase imaging through the entire abdomen and pelvis. Coronal and sagittal reconstructions provided and venous phase imaging. CT abdomen: The lung bases are clear. Heart is not enlarged. There is no pericardial thickening or effusion. I see no definite hiatal hernia. No fatty liver change or focal hepatic lesion. No hepatosplenomegaly, biliary dilatation, cyst or solid renal mass. Gallbladder partially contracted without calcified stone or mass. Stomach shows small amounts of retained fluid within, but no mass. Adrenal glands were normal. In the upper pole of the right kidney is a 19 mm cyst with smooth margins. It has no calcification on the precontrast images. It maintains homogeneous low attenuation; does not enhance. Anteriorly at the interpolar lower pole junction of the right kidney there is a 3.4 cm cyst partially exophytic. It shows no calcification in its wall. There is no perceptible wall or enhancement of the wall or its internal appearance. There is no evidence of enhancement on the standard delayed images. There are no solid renal masses. I see no septations. The aorta is unremarkable. No periaortic or other retroperitoneal lymphadenopathy. Pancreas, small bowel loops and colon unremarkable. Appendix is seen and normal in caliber without inflammatory changes. There is some barium within it from the esophagram last month. Bones show degenerative facet changes lower lumbar spine without compression deformity or destructive lesion. The visualized ribs are intact. CT pelvis: Hips, pelvis, SI joints, sacrum and symphysis pubis intact without focal lesion. The colon is unremarkable. Small bowel loops in the pelvis show fluid, slight dilatation, but no evidence of obstruction, mass or free air, ascites, adenopathy or perforation. No ventral or inguinal hernia nor pathologic inguinal adenopathy. Bladder unremarkable with no wall thickening, stone or mass. No distal ureteral dilatation or stone. Prostate has a few calcifications within. It measures approximately 4.3 x 4.5 x 4 cm, somewhat lobulated in its indentation at the bladder base and enlarged. No periprostatic adenopathy or infiltration by CT. Seminal vesicles symmetric. The distal left colon, sigmoid and rectum unremarkable. Impression: 1. Bosniak class I renal cyst. These are simple cysts on each side and are clearly benign needing no further follow-up. 2. Prostate enlargement as described. 3. Some mildly dilated distal small bowel loops without signs of obstruction, infiltration of the mesentery, ascites, adenopathy or other acute finding. Signed by Raul Kirkpatrick MD 12/09/2016 07:21 P
== END ==
LOC: M RAD 18:02
PROVIDERS: ATTEND Nurse Practitioner Women's Health
DX: N28.1 Cyst of kidney, acquired (principal); N40.0 Benign prostatic hyperplasia without lower urinary tract symptoms; K56.2 Volvulus
CPT/HCPCS: 74178; Q9967

== ENCOUNTER 2017-01-13 16:23 | Emergency (ER) | payer OTHER ==
[~2017-01-13] VITALS: Ht 170.2 cm; Wt 82.6 kg
[2017-01-13 16:23] VITALS: BP 152/77
[2017-01-13] MEDS ORDERED: ONGL1TAB9 (16:41)
[2017-01-13] MEDS ORDERED: LISI10TA4 (16:41)
[2017-01-13] MEDS ORDERED: METO50TA2 (16:41)
[2017-01-13] MEDS ORDERED: ATOR1TAB21 (16:41)
[2017-01-13] MEDS ORDERED: FLUORESCEIN OPHTH 1 MG STRIP OD ONE (17:15)
== END 2017-01-13 17:35 | disposition home or self-care (01) ==
LOC: M ED 17:26
DX: H57.11 Ocular pain, right eye (principal)

== ENCOUNTER → 2017-02-04 | Outpatient (CLI) | payer OTHER ==
[~2017-02-04] MED LIST changes: +ATOR1TAB21; -ISOVUE-370 76% 100ML VIAL (Q9967) As Ordered ONE; +LISI10TA4; +METO50TA2; +ONGL1TAB9
--- NOTE | 2017-02-04 14:19 | REP ---
RIGHT ELBOW SERIES COMPLETE: 02/04/2017. Clinical history: Right elbow pain. Findings: Four views are provided. There is no spur or avulsion at the insertion of the triceps and the posterior olecranon. No glenohumeral joint effusion. Radial head and capitellum align normally. There is no visible fracture, avulsion of the olecranon and proximal ulna and the distal humerus shows no supracondylar fracture. No abnormal soft tissue calcifications. Impression: 1. Negative left elbow for fracture, joint effusion, avulsion or acute finding. Minor degenerative changes. Signed by Raul Kirkpatrick MD 02/04/2017 07:32 P
== END ==
LOC: M LRY 12:36
PROVIDERS: ATTEND Nurse Practitioner Family
DX: M19.021 Primary osteoarthritis, right elbow (principal)

== ENCOUNTER 2019-05-29 12:53 | Emergency (ER) | payer MEDICAID, OTHER, SELFPAY ==
[~2019-05-29] VITALS: Ht 170.2 cm; Wt 75.0 kg
[~2019-05-29 12:53] MED LIST changes: +ATOR1TAB19 PO; +LISI-1046 PO; +METF10004 PO; -METO50TA2; +METO50TA7; +METO50TA7 PO; +ONGL1TAB9 PO
--- NOTE | 2019-05-29 14:20 | REP ---
Soft-tissue neck x-ray: Three views. History: Right anterior neck discomfort. Findings: AP and lateral views demonstrate normal epiglottis and aryepiglottic folds. Retropharyngeal soft tissues are not widened. The glottic and subglottic airway is unremarkable. There is minimal discogenic spurring anteriorly at C3-4 C4-5 and C5-6. No soft tissue calcification or mass lesion is seen. There is some dystrophic calcification posterior to the spinous process sees in the neck at the C5 and C6 spinous processes. Impression: Negative soft-tissue neck radiographs. Electronically Signed by Bon Morales MD 05/29/2019 02:17 P
[2019-05-29] MEDS ORDERED: NAPR-837 PO (14:27)
[2019-05-29 14:31] VITALS: BP 157/85
== END 2019-05-29 14:31 | disposition home or self-care (01) ==
LOC: M ED 12:53
DX: R13.10 Dysphagia, unspecified (principal); E11.9 Type 2 diabetes mellitus without complications; I10 Essential (primary) hypertension; E78.5 Hyperlipidemia, unspecified; Z79.899 Other long term (current) drug therapy; Z79.84 Long term (current) use of oral hypoglycemic drugs; Z88.8 Allergy status to other drugs, medicaments and biological substances

== ENCOUNTER → 2020-01-27 | Outpatient (CLI) | payer MEDICAID, OTHER, SELFPAY ==
[~2020-01-27] MED LIST changes: +NAPR-837 PO
--- NOTE | 2020-01-27 20:22 | REP ---
CHEST, TWO VIEWS: There is no evidence of acute infiltrate. No pleural effusion is seen. The heart is normal in size. The mediastinal silhouette is unremarkable. The visualized osseous structures are intact. IMPRESSION: No acute pulmonary disease. Electronically Signed by Jamil Connolly MD 01/27/2020 08:27 P
== END ==
LOC: M LRY 19:49
PROVIDERS: ATTEND Nurse Practitioner Family
DX: R06.02 Shortness of breath (principal)

== ENCOUNTER → 2021-10-19 | Outpatient (CLI) | payer OTHER ==
[~2021-10-19] MED LIST changes: -LISI-1046 PO; +LISI10TA22; -LISI10TA4; +LISI2.5T9 PO
[2021-10-19 15:35] LABS: BILIRUBIN,DIRECT 0.1 MG/DL (0.0-0.2); BILIRUBIN,TOTAL 0.3 MG/DL (0.2-1.0); TOTAL PROTEIN 7.5 GM/DL (6.4-8.2)
== END ==
LOC: M LAB 14:17
PROVIDERS: ATTEND Internal Medicine Gastroenterology
DX: R14.0 Abdominal distension (gaseous) (principal)

== ENCOUNTER 2021-12-31 11:17 | Emergency (ER) | payer OTHER ==
[2021-12-31 12:28] LABS: BASO # 0.1 10^3/uL (0.0-0.2); BASO % 0.7 % (0.0-1.0); EOS # 0.2 10^3/uL (0.0-0.5); EOS % 2.9 % (0.0-3.0); HEMATOCRIT 45.5 % (42.0-52.0); HEMOGLOBIN 15.9 g/dl (13.5-17.5); LYMPH % 27.8 % (24.0-44.0); MEAN CORPUSCULAR HEMOGLOBIN 31.5 pg (27.0-33.0); MEAN CORPUSCULAR HGB CONC 34.9 g/dl (32.0-36.5); MEAN CORPUSCULAR VOLUME 90.3 fl (80.0-96.0); MONO # 0.7 10^3/uL (0.0-0.8); MONO % 10.1 % (2.0-8.0); NEUTROPHILS # 4.2 10^3/uL (1.5-8.5); NEUTROPHILS % 58.4 % (36.0-66.0); PLATELET COUNT, AUTOMATED 216 10^3/uL (150-450); RED BLOOD COUNT 5.04 10^6/uL (4.30-6.10); WHITE BLOOD COUNT 7.1 10^3/uL (4.0-10.0)
[2021-12-31 12:51] LABS: ALT/SGPT 45 U/L (12-78); BILIRUBIN,DIRECT 0.2 MG/DL (0.0-0.2); BILIRUBIN,TOTAL 0.5 MG/DL (0.2-1.0); BLOOD UREA NITROGEN 8 MG/DL (7-18); CALCIUM LEVEL 9.4 MG/DL (8.5-10.1); CARBON DIOXIDE LEVEL 29 MEQ/L (21-32); CHLORIDE LEVEL 102 MEQ/L (98-107); CREATININE FOR GFR 0.87 MG/DL (0.70-1.30); GLOMERULAR FILTRATION RATE > 60.0 (>56); GLUCOSE, FASTING 133 MG/DL (70-100); LIPASE 179 U/L (73-393); POTASSIUM SERUM 4.5 MEQ/L (3.5-5.1); SODIUM LEVEL 138 MEQ/L (136-145); TOTAL PROTEIN 7.5 GM/DL (6.4-8.2)
[2021-12-31 13:55] LABS: CK-MB VALUE MASS 1.2 NG/ML (<3.6); MB/CK RELATIVE INDEX 0.72 (< OR =4)
[2021-12-31 15:51] VITALS: BP 135/72
== END 2021-12-31 16:00 | disposition home or self-care (01) ==
LOC: M ED 11:17
DX: R13.10 Dysphagia, unspecified (principal); R07.9 Chest pain, unspecified

== ENCOUNTER → 2022-02-24 | Outpatient (CLI) | payer OTHER, MEDICAID | LOC: M PLARAD 07:34 | PROVIDERS: ATTEND Psychiatry & Neurology Neurology | DX: R51.9 Headache, unspecified (principal) ==

== ENCOUNTER → 2022-04-15 | Outpatient (CLI) | payer OTHER ==
[2022-04-15 09:49] LABS: BLOOD UREA NITROGEN 7 MG/DL (7-18); CALCIUM LEVEL 9.5 MG/DL (8.5-10.1); CARBON DIOXIDE LEVEL 29 MEQ/L (21-32); CHLORIDE LEVEL 107 MEQ/L (98-107); CREATININE FOR GFR 0.82 MG/DL (0.70-1.30); GLOMERULAR FILTRATION RATE > 60.0 (>56); GLUCOSE, FASTING 138 MG/DL (70-100); POTASSIUM SERUM 5.1 MEQ/L (3.5-5.1); SODIUM LEVEL 140 MEQ/L (136-145)
== END ==
LOC: M LAB 08:48
PROVIDERS: ATTEND Psychiatry & Neurology Neurology
DX: I65.02 Occlusion and stenosis of left vertebral artery (principal)

== ENCOUNTER → 2022-04-17 | Outpatient (CLI) | payer OTHER | LOC: M RAD 06:41 | PROVIDERS: ATTEND Internal Medicine Gastroenterology | DX: R93.3 Abnormal findings on diagnostic imaging of other parts of digestive tract (principal); R74.8 Abnormal levels of other serum enzymes; K85.90 Acute pancreatitis without necrosis or infection, unspecified ==

== ENCOUNTER → 2022-04-18 | Outpatient (CLI) | payer OTHER ==
[~2022-04-18] MED LIST changes: +ISOVUE-370 76% 100ML VIAL As Ordered ONE
== END ==
LOC: M RAD 13:43
PROVIDERS: ATTEND Psychiatry & Neurology Neurology
DX: I65.02 Occlusion and stenosis of left vertebral artery (principal)
CPT/HCPCS: 70496; 70498; Q9967

== ENCOUNTER → 2023-05-24 | Outpatient (CLI) | payer OTHER ==
[~2023-05-24] MED LIST changes: -ISOVUE-370 76% 100ML VIAL As Ordered ONE
== END ==
LOC: M RAD 09:40
PROVIDERS: ATTEND Surgery
DX: R94.02 Abnormal brain scan (principal)

== ENCOUNTER 2023-09-23 16:13 | Emergency (ER) | payer OTHER ==
[~2023-09-23] VITALS: Ht 167.6 cm; Wt 82.2 kg
[2023-09-23] MEDS ORDERED: KETOROLAC 30 MG/ML 1ML VIAL IV ONE (19:30)
[2023-09-23 20:08] LABS: BASO % 0.4 % (0.0-1.0); EOS % 0.3 % (0.0-3.0); HEMATOCRIT 42.7 % (42.0-52.0); HEMOGLOBIN 15.9 g/dl (13.5-17.5); LYMPH # 2.2 10^3/uL (1.5-5.0); LYMPH % 24.1 % (24.0-44.0); MEAN CORPUSCULAR HEMOGLOBIN 32.8 pg (27.0-33.0); MONO # 0.9 10^3/uL (0.0-0.8); MONO % 9.6 % (2.0-8.0); NEUTROPHILS # 5.8 10^3/uL (1.5-8.5); NEUTROPHILS % 65.5 % (36.0-66.0); PLATELET COUNT, AUTOMATED 204 10^3/uL (150-450); RED BLOOD COUNT 4.85 10^6/uL (4.30-6.10); WHITE BLOOD COUNT 8.9 10^3/uL (4.0-10.0)
[2023-09-23 20:13] LABS: MEAN CORPUSCULAR HGB CONC 37.2 g/dl (32.0-36.5)
[2023-09-23 20:17] LABS: ERYTHROCYTE SEDIMENTATION RATE 4 mm/hr (0-20)
[2023-09-23 20:31] LABS: C REACTIVE PROTEIN QUANTITATIV < 0.40 MG/DL (<1.0); LIPASE 49 U/L (12-53)
[2023-09-23 20:33] LABS: ALBUMIN 4.3 G/DL (3.2-5.2); ALKALINE PHOSPHATASE 54 U/L (46-116); ALT/SGPT 30 U/L (7.0-40); AST/SGOT 30 U/L (<34); BILIRUBIN,DIRECT 0.3 MG/DL (<0.4); BILIRUBIN,TOTAL 0.8 MG/DL (0.3-1.2); BLOOD UREA NITROGEN 8 MG/DL (9-23); CALCIUM LEVEL 9.3 MG/DL (8.5-10.1); CARBON DIOXIDE LEVEL 24 MMOL/L (20-31); CHLORIDE LEVEL 98 MMOL/L (98-107); CREATININE FOR GFR 0.83 MG/DL (0.70-1.30); GLOMERULAR FILTRATION RATE > 60.0 (>56); GLUCOSE, FASTING 116 MG/DL (60-100); POTASSIUM SERUM 3.7 MMOL/L (3.5-5.1); SODIUM LEVEL 135 MMOL/L (136-145); TOTAL PROTEIN 7.5 G/DL (5.7-8.2)
[2023-09-23 21:58] VITALS: BP 141/89; TEMP 96.7; O2SAT 99
== END 2023-09-23 22:00 | disposition home or self-care (01) ==
LOC: M ED 16:13
DX: N50.819 Testicular pain, unspecified (principal); M79.604 Pain in right leg; N50.3 Cyst of epididymis; E11.9 Type 2 diabetes mellitus without complications; I10 Essential (primary) hypertension; E78.5 Hyperlipidemia, unspecified; F43.10 Post-traumatic stress disorder, unspecified; N40.0 Benign prostatic hyperplasia without lower urinary tract symptoms; Z79.84 Long term (current) use of oral hypoglycemic drugs; Z79.899 Other long term (current) drug therapy; Z88.8 Allergy status to other drugs, medicaments and biological substances
CPT/HCPCS: 76870; 80048; 80076; 83605; 83690; 85025; 85652; 86140; 93971; 93976; 96374; 99284; J1885

== ENCOUNTER → 2023-12-18 | Outpatient (REF) ==
[~2023-12-18] MED LIST changes: +ALPR1TAB3 PO; +AMOX875T2 PO; +ATOR1TAB21 PO; +CEFD300CAP PO; +LISI10TA24 PO; +LOSA-527 PO; +METR-265 PO; +MIRT-10 PO; +MYCO15CR TOP; +OMEP40CA5 PO; +TAMS1CAP17 PO; +XALA0.007 OU; +ZOLO100T PO
== END ==
LOC: M PLAIMG 09:44
PROVIDERS: ATTEND Internal Medicine
DX: R52 Pain, unspecified (principal)

== ENCOUNTER → 2024-01-02 | Outpatient (REF) | LOC: M PLAIMG 08:25 | PROVIDERS: ATTEND Internal Medicine | DX: R52 Pain, unspecified (principal) ==

== ENCOUNTER → 2024-11-14 | Outpatient (CLI) | payer OTHER | LOC: M PLARAD 10:01 | PROVIDERS: ATTEND Psychiatry & Neurology Neurology | DX: R93.0 Abnormal findings on diagnostic imaging of skull and head, not elsewhere classified (principal) ==